=== PATIENT | female | born 1980 | race Caucasian/White ===

== ENCOUNTER 2025-05-12 22:33 | Emergency (ER) | payer SELFPAY ==
[2025-05-12 22:34] VITALS: BP 146/85; PULSE 97; RESP 26; TEMP 36.8; O2SAT 97; BMI 34.7
--- OUTSIDE RECORDS SUMMARY | 2025-05-12 22:47 | XMS_ITS | Patient Health Record ---
Author Organization [facility] Address [address] [place] [address] Care Team Providers Care Facsimile Operator Name Role Phone Aaa, Provider Primary Care Provider Unavailabl e Reason For Referral No Information Problems Problem Type SNOMED Code ICD Code Onset Dates Problem Status W/U Status Risk Notes Problem Eosinophilic esophagitis (904234155) Eosinophilic esophagitis (K20.0) Active confirmed Problem Esophageal stricture (87514848) ESOPHAGEAL STRICTURE (K22.2) Active confirmed Plan Of Treatment No Information Insurance Providers Payer Name Payer Address Payer Phone Subscriber Number Group Number Insured Name Patient Relationship to Insured Coverage Start Date Coverage End Date [facility] MEDICAID COMMUNITY PLAN [address] [place] [address] [id number] CINDI MILLARD Self - patient is the insured
[2025-05-12 22:50] VITALS: BP 135/103; PULSE 81; RESP 22; O2SAT 100
--- NOTE | 2025-05-12 23:21 | XRR_ITS ---
PROCEDURE INFORMATION: Exam: XR Chest Exam date and time: 05/12/2025 11:22 PM Age: 44 years old Clinical indication: Other: Possible food bolus; Patient feels like a piece of sausage is stuck in esophagus. TECHNIQUE: Imaging protocol: Radiologic exam of the chest. Views: 1 view. COMPARISON: No relevant prior studies available. FINDINGS: Lungs: No pulmonary consolidation. Pleural spaces: No pleural effusion or pneumothorax. Heart/Mediastinum: Heart size is within normal limits. Bones/joints: No acute osseous abnormalities are seen. XR/XR chest 1V portable [id number] IMPRESSION: No acute cardiopulmonary disease.
[2025-05-12 23:32] VITALS: PULSE 80; RESP 20; O2SAT 98
[2025-05-12 23:34] VITALS: PULSE 80; RESP 20; O2SAT 96
[2025-05-13] MEDS: glucagon 1 mg/mL KIT 1 mL 2 MG IVP (00:22)
[2025-05-13 00:24] VITALS: BP 135/104; PULSE 92; RESP 20; O2SAT 100
[2025-05-13] MEDS: haloperidol inj 5 mg/mL INJ 1 mL 3 MG IVP (00:36)
--- NOTE | 2025-05-13 00:45 | ED_ITS ---
HPI - Nausea/Vomiting/Diarrhea 2 General: Chief complaint: Airway/Esophagus Foreign Body Stated complaint: meat stuck in throat Time Seen by Provider: 05/12/25 22:41 History of Present Illness: Patient is a 44-year-old female who presents with sensation of food (Finnish sausage) stuck in her throat/mid-chest area since midnight last night (approximately 24 hours duration). She reports that she has tried multiple times to get it to go down herself without success. She states that when she drinks liquids, they come back up, requiring her to spit into a cup. She even attempted to use a popsicle to dislodge the food without success. The patient denies hematemesis but does endorse pain in the area. She reports a history of similar episodes twice in the past and states she was supposed to undergo esophageal dilation. Her last esophageal dilation was over two years ago in [place]. She reports that even bread gets stuck in her throat easily, suggesting a history of dysphagia. Related Data Allergies Allergy/AdvReac Type Severity Reaction Status Date / Time No Known Allergies Allergy Verified 05/12/25 22:38 Physical Exam 2 Const: COMMON NORMALS: no acute distress GENERAL APPEARANCE: cooperative; not ill appearing and not frail appearing HENMT: COMMON NORMALS: normocephalic, atraumatic and Normal external nose present HEAD & SCALP: normocephalic and atraumatic FACE & SINUS: normal facial exam and face symmetric NOSE: Normal external nose present Eye: COMMON NORMALS: Equal, round and reactive pupils present and EOMs intact bilaterally PUPIL: Yes Equal, round and reactive pupils present Neck/C-Spine: GENERAL: Yes trachea midline Chest: CHEST: Yes Symmetrical chest wall rise Resp: COMMON NORMALS: normal respiratory effort, No retractions, No use of accessory muscles and clear to auscultation bilaterally AUSCULTATION: clear to auscultation bilaterally Cardio: COMMON NORMALS: regular rate and regular rhythm RATE: regular rate RHYTHM: regular rhythm GI: COMMON NORMALS: Normal to inspection, nondistended, normoactive bowel sounds present Extremity: COMMON NORMALS: no pedal edema Neuro: JESSICA COMA SCALE: document GCS findings Jessica coma scale eye opening: Spontaneous Jessica coma scale verbal response: Orientated [place] coma scale motor response: Obey commands Jessica coma scale total score: 15 S ENSORY EXAM: Yes extremities (intact) Psych: COMMON NORMALS: speech normal SPEECH: Yes normal speech Skin: COMMON NORMALS: no rashes or lesions noted GENERAL SKIN EXAM: no rashes or lesions noted Course 2 Vital Signs: Vital signs: Vital Signs Temperature 98.2 F 05/12/25 22:34 Pulse Rate 71 05/13/25 02:09 Respiratory Rate 20 H 05/13/25 02:09 Blood Pressure 121/78 05/13/25 02:09 Pulse Oximetry 95 05/13/25 02:09 Oxygen Delivery Me thod Room Air 05/13/25 01:59 MDM - Nausea/Vomiting/Diarrhea Medical Decision Making Patient chest x-ray is nonacute. She was given glucagon and sublingual nitroglycerin. 5 minutes later she was asked to guzzle a soda. The soda came up, but the polar sausage did not come up. She is complaining of some pain. She is given Toradol and Haldol for pain and nausea. She is improved at this point. We do not have a surgeon or GI available at this facility this weekend. Will have to call for transfer. Spoke with gastroenterology at [facility] in [place]. They have graciously agreed to accept the patient in transfer. Vitals remained stable for transfer. She will go by POV to the ER there for outpatient management of esophageal food bolus. Lab Data 05/13/25 01:04 05/13/25 01:04 Radiology Impressions Chest X-Ray 05/12/25 23:21 IMPRESSION: No acute cardiopulmonary disease. Laboratory Results WBC 5.19 10^3/uL (3.29-11.43) 05/13/25 01:04 RBC 4.12 10^6/uL (3.85-5.65) 05/13/25 01:04 Hgb 10.60 g/dL (11.27-16.99) L 05/13/25 01:04 Hct 34.4 % (36-47) L 05/13/25 01:04 MCV 83.5 fl (85-98) L 05/13/25 01:04 MCH 25.7 pg (27-33) L 05/13/25 01:04 MCHC 30.8 g/dL (30-55) 05/13/25 01:04 RDW 16.3 % (12.1-15.1) H 05/13/25 01:04 Plt Count 239 10^3/cmm (157-399) 05/13/25 01:04 MPV 10.8 fL (7.4-10.4) H 05/13/25 01:04 Neut % (Auto) 48.1 % 05/13/25 01:04 Lymph % (Auto) 39.1 % 05/13/25 01:04 [place] % (Auto) 6.4 % 05/13/25 01:04 Eos % (Auto) 5.0 % 05/13/25 01:04 Baso % (Auto) 1.2 % 05/13/25 01:04 Neut # (Auto) 2.50 10^3/uL (1.8-7.7) 05/13/25 01:04 Lymph # (Auto) 2.0 10^3/uL (0.8-4.8) 05/13/25 01:04 [place] # (Auto) 0.3 10^3/uL (0.2-0.9) 05/13/25 01:04 Eos # (Auto) 0.3 10^3/uL (0.0-0.8) 05/13/25 01:04 Baso # (Auto) 0.1 10^3/uL (0.0-0.1) 05/13/25 01:04 Nucleated RBC % (auto) 0 % 05/13/25 01:04 Nucleated RBCs # 0.0 /100WBC 05/13/25 01:04 Sodium 139 mmol/L (136-145) 05/13/25 01:04 Potassium 2.8 mmol/L (3.5-5.1) L* 05/13/25 01:04 Chloride 105 mmol/L (98-107) 05/13/25 01:04 Carbon Dioxide 20 mmol/L (22-29) L 05/13/25 01:04 Anion Gap 16.8 (5-19) 05/13/25 01:04 BUN 7 mg/dL (6-20) 05/13/25 01:04 Creatinine 0.6 mg/dL (0.5-0.9) 05/13/25 01:04 GFR Calculation 107.6 mL/min (90-130) 05/13/25 01:04 Glucose 144 mg/dL (65-115) H 05/13/25 01:04 Calculated Osmolality 289 mOsm/kg (285-295) 05/13/25 01:04 Calcium 8.9 mg/dL (8.5-10.5) 05/13/25 01:04 Total Bilirubin 0.5 mg/dL (0.15-1.2) 05/13/25 01:04 AST 19 U/L (0-32) 05/13/25 01:04 ALT 14 U/L (0-33) 05/13/25 01:04 Alkaline Phosphatase 73 U/L (35-105) 05/13/25 01:04 Total Protein 6.8 g/dL (6.6-8.7) 05/13/25 01:04 Albumin 3.7 g/dL (3.5-5.2) 05/13/25 01:04 Globulin 3.1 g/dL (1.3-4.6) 05/13/25 01:04 Lipase 21 U/L (13-60) 05/13/25 01:04 All radiology interpretation(s) finalized by discharge Discharge Plan Discharge Patient Disposition: Xfer Short-Term Hosp Clinical Impression: Food impaction of esophagus Condition: Stable Referrals: Charlene Carranza MD [Primary Care Provider, Family Practice] Patient Instructions: Food Impaction (ED) Activity Restrictions/Additional Instructions: You have been accepted at [facility] in [place] for gastroenterology consultation and potential EGD to manage your problem. Directions to the hospital will be given to you. Print Language: Monegasque Coding Level of Care Code ED Childcare Center Administrator for Lu Sarkar
[2025-05-13 01:13] LABS: Hematocrit 34.4 % (36-47); Hemoglobin 10.60 g/dL (11.27-16.99); Mean Corpuscular HGB Conc 30.8 g/dL (30-55); Mean Corpuscular Hemoglobin 25.7 pg (27-33); Mean Corpuscular Volume 83.5 fl (85-98); Nucleated Red Blood Cells % 0 %; Platelet Count 239 10^3/cmm (157-399); Red Blood Count 4.12 10^6/uL (3.85-5.65); White Blood Count 5.19 10^3/uL (3.29-11.43)
[2025-05-13 01:59] VITALS: BP 115/85; PULSE 89; RESP 20; O2SAT 98
[2025-05-13 02:02] LABS: Alanine Aminotransferase 14 U/L (0-33); Albumin Level 3.7 g/dL (3.5-5.2); Alkaline Phosphatase 73 U/L (35-105); Anion Gap 16.8 (5-19); Aspartate Amino Transferase 19 U/L (0-32); Blood Urea Nitrogen 7 mg/dL (6-20); Calcium 8.9 mg/dL (8.5-10.5); Carbon Dioxide 20 mmol/L (22-29); Chloride 105 mmol/L (98-107); Creatinine Clr Calc Pharmacy 119.3565; Globulin 3.1 g/dL (1.3-4.6); Glucose 144 mg/dL (65-115); Lipase 21 U/L (13-60); Osmolality Calculated 289 mOsm/kg (285-295); Sodium 139 mmol/L (136-145); Total Protein 6.8 g/dL (6.6-8.7)
[2025-05-13 02:06] LABS: Potassium 2.8 mmol/L (3.5-5.1)
[2025-05-13 02:09] VITALS: BP 121/78; PULSE 71; RESP 20; O2SAT 95
== END 2025-05-13 02:21 | disposition short-term general hospital (02) ==
PROVIDERS: Emergency Provider Emergency Medicine; PCP Family Medicine
DX: T18.128A Food in esophagus causing other injury, initial encounter (principal); W44.F3XA Food entering into or through a natural orifice, initial encounter
CPT/HCPCS: 36415; 71045; 80053; 83690; 85025; 94640; 96374; 96375; 99285; J1610; J1630; J1885; J9999